=== PATIENT | male | born 2005 | race Two or more races ===

== ENCOUNTER 2025-09-20 11:14 | Emergency (ER) | payer OTHER, SELFPAY ==
[2025-09-20 11:18] VITALS: O2SAT 97
[2025-09-20 11:32] VITALS: BP 129/63; PULSE 101; RESP 15; TEMP 36.9; O2SAT 97
--- NOTE | 2025-09-20 12:15 | DI.RAD_ITS ---
Exam(s) XR SHOULDER LT COMPLETE 2+V EXAM: XR SHOULDER LT COMPLETE 2+V CLINICAL HISTORY: left shoulder injury, fall while snowboarding, ac. TECHNIQUE: 2D digital imaging was performed. COMPARISON: No exams were available for comparison FINDINGS: Four views There is dislocation of the AC joint. There is no fracture of the clavicle nor of the a chromium. Humeral head and glenohumeral joint appear unremarkable. The coracoid process is intact. Subjacent left ribs appear intact and there is no pneumothorax. IMPRESSION: Dislocation of the AC joint. DATA REPOSITORY: RADIATION DOSE DELIVERED:
[2025-09-20 13:28] VITALS: BP 130/66; PULSE 60; RESP 16; TEMP 36.1; O2SAT 99
--- NOTE | 2025-09-21 19:47 | W.ED.GENAD ---
Discharge Plan Disposition Patient Disposition: Home Discharge Details Clinical Impression: Acromioclavicular joint separation, type 3 Primary Care Provider: Unknown,Unknown ED Provider: Kasey Munguia Home Meds and New Rx's Prescriptions: No Action No Known Home Meds Discharge Instructions Instructions: Floating Shoulder (DC) Additional Instructions: Take Motrin and Tylenol as needed for pain Keep your sling in place until orthopedics see you You may apply ice I will supply referral to our orthopedic team affiliated with our hospital, [facility], alternatively if you have an orthopedist at home you may also follow-up with them when you return home Stand Alone Forms: Portal Information, School Release Referrals: Chucho Hernandez MD [ [facility] STAFF PHYSICIAN, Orthopaedic Surgical] Discharge Data Discharge Date/Time-TO BE ENTERED AT DEPARTURE: 09/20/25 13:41 HPI General Date/Time Provider Initiated Documentation: 09/20/25 12:15. HPI Narrative: This 20-year-old male follow-up presents with snowboarding injury today. States he landed directly shoulder. Having trouble moving his arm. Denies head injury elbow pain or wrist pain. Denies any additional injuries otherwise healthy attends college locally from [facility] Related Data Home Medications ?Medication ?Instructions ?Recorded ?Confirmed Unknown [No Known Home Meds] 09/20/25 09/20/25 Allergies Allergy/AdvReac Type Severity Reaction Status Date / Time No Known Allergies Allergy Unverified 09/20/25 11:36 General Stated Complaint: Orthopedic ANTON: 4 Exam Narrative Exam Narrative: Alert and oriented 20-year-old male in no acute distress with deformity noted to left shoulder region, no tenderness to mid clavicle, elbow, or wrist, neurovascularly intact no cervical spine tenderness GCS 15 no chest wall tenderness lungs clear to auscultation Course Vital Signs Vital signs: Vital Signs Pulse Oximetry 97 09/20/25 11:18 Temperature 36.1 C L 09/20/25 13:28 Pulse 60 09/20/25 13:28 Respiratory Rate 16 09/20/25 13:28 Blood Pressure 130/66 09/20/25 13:28 Blood Pressure Mean 87 09/20/25 13:28 Blood Pressure Position Sitting 09/20/25 11:32 Pulse Oximetry 99 09/20/25 13:28 Oxygen Delivery Method Room Air 12/10/25 13:28 Oxygen Flow Rate 0 09/20/25 13:28 Pain Level 5 09/20/25 13:41 Medical Decision Making Results: AC separation noted per radiology interpretation my review Assessment and plan: Patient placed in sling and referred to orthopedic. Encouraged Motrin and Tylenol and supportive care at home. Return precautions reviewed and patient remains neurovascularly intact throughout encounter PFSH All Active Problems (Updated 09/20/25 @ 13:03 by LUZ Rivera) Acromioclavicular joint separation, type 3 (Acute) Social History Smoking risk assessment performed?: No
== END 2025-09-20 13:41 | disposition home or self-care (01) ==
PROVIDERS: Emergency Provider Physician Assistant
DX: S43.102A Unspecified dislocation of left acromioclavicular joint, initial encounter (principal); V00.311A Fall from snowboard, initial encounter
CPT/HCPCS: 99283 ×2; 73030